=== PATIENT | female | born 1975 | race Caucasian/White ===

== ENCOUNTER → 2017-09-27 | Emergency (ER) | payer OTHER ==
[~2017-09-27] VITALS: Ht 170.2 cm; Wt 89.8 kg
[~2017-09-27] MED LIST: HYDROCHLOROTH12.5 M1; TOPROL XL100 M1
== END | disposition left against medical advice (07) ==
LOC: ER 13:12 → CPU-OBS 13:28 → ER 13:28
DX: R07.89 Other chest pain (principal)
CPT/HCPCS: G0378; G0379; 93005

== ENCOUNTER 2018-06-09 14:43 | Inpatient (IN) | payer OTHER ==
[~2018-06-09] VITALS: Ht 170.2 cm; Wt 88.5 kg
== END 2018-06-20 14:07 | disposition home health service (06) | DRG 743 ==
LOC: O/R 06-17 09:04 → SURG 06-17 09:45 → OB/GYN 06-17 17:54 → SURG 06-17 18:15 → OB/GYN 06-17 19:04
PROVIDERS: Urology; ADMIT Obstetrics & Gynecology
PROC: 0UT70ZZ Resection of Bilateral Fallopian Tubes, Open Approach (ICD-10-PCS; 2018-06-17)
PROC: 0T788DZ Dilation of Bilateral Ureters with Intraluminal Device, Via Natural or Artificial Opening Endoscopic (ICD-10-PCS; 2018-06-17)
PROC: 0UT90ZZ Resection of Uterus, Open Approach (ICD-10-PCS; principal; 2018-06-17 18:15)
PROC: 0UT20ZZ Resection of Bilateral Ovaries, Open Approach (ICD-10-PCS; 2018-06-17 18:15)
DX: D25.1 Intramural leiomyoma of uterus (principal); D25.2 Subserosal leiomyoma of uterus; N83.8 Other noninflammatory disorders of ovary, fallopian tube and broad ligament; N80.0 Endometriosis of uterus; R31.0 Gross hematuria; R11.10 Vomiting, unspecified; N28.89 Other specified disorders of kidney and ureter

== ENCOUNTER 2020-07-04 18:17 | Emergency (ER) | payer OTHER ==
[~2020-07-04] VITALS: Ht 170.2 cm; Wt 86.2 kg
== END 2020-07-05 01:33 | disposition home or self-care (01) ==
LOC: ER 18:17
DX: R10.84 Generalized abdominal pain (principal)